=== PATIENT | male | born 1955 | race Caucasian/White ===

== ENCOUNTER 2024-11-08 11:33 | Emergency (ER) | payer MEDICARE ==
[~2024-11-08] VITALS: Ht 165.1 cm; Wt 48.0 kg
[~2024-11-08 11:33] MED LIST: ACYC200C31 PO; AMLO5TAB88 PO; AMOX1TAB16 MT; ASPI-1497 PO; ATOR10TA69 PO; BORT3.5V IJ; DAPA10TA PO; GLIP10TA17 PO; LENA25CA PO; LEVO-65 MT; ONDA8TAB59 PO; SULF-299 MT; [UNRECOGNIZED DRUG - CODE]
[2024-11-08 11:34] VITALS: O2SAT 99
[2024-11-08 12:08] VITALS: BP 129/75; PULSE 87; RESP 16; TEMP 36.9; O2SAT 100
[2024-11-08 12:50] LABS: BASOPHILS % 0.1 % (0.0-2.0); EOSINOPHILS % 0.1 % (0.0-5.0); HEMATOCRIT. 35.0 % (42.0-52.0); HEMOGLOBIN. 11.6 g/dL (14.0-18.0); LYMPHOCYTES % 13.1 % (20.0-50.0); MEAN PLATELET VOLUME 8.3 fl (7.4-10.4); MONOCYTES % 11.7 % (2.0-8.0); NEUTROPHILS % 75.0 % (40.0-76.0); PLATELET 330 x1000/uL (130-400); RED BLOOD CELL COUNT 3.72 mill/uL (4.7-6.1); RED CELL DISTRIBUTION WIDTH 20.6 % (11.6-14.6)
[2024-11-08 13:04] LABS: CREATININE 1.4 mg/dL (0.6-1.3); TROPONIN I HIGH SENSITIVITY 12 ng/L (3.0-53); UREA NITROGEN BLOOD 20 mg/dL (9-23)
== END 2024-11-08 13:41 | disposition left against medical advice (07) ==
LOC: ER 11:52 → CANBEDREQ 13:13 → ER 13:41
DX: R55 Syncope and collapse (principal); E11.9 Type 2 diabetes mellitus without complications; E78.00 Pure hypercholesterolemia, unspecified; I10 Essential (primary) hypertension; Z79.82 Long term (current) use of aspirin; Z85.9 Personal history of malignant neoplasm, unspecified; Z79.899 Other long term (current) drug therapy
CPT/HCPCS: 36415; 71045; 80048; 84484; 85025; 93005; 99285; A4606